=== PATIENT | female | born 1985 | race Caucasian/White ===

== ENCOUNTER → 2018-12-25 09:14 | Outpatient (CLI) | payer OTHER, SELFPAY ==
--- NOTE | 2018-12-25 | DI.US.S_ITS ---
PROCEDURE: US OB <= 14 WEEKS FETUS INDICATIONS: INITIAL SIZING AND DATING OUTSIDE/PRIOR DATING DATA: Last menstrual period (LMP): 11/07/18. LMP-based estimated date of delivery (RAN): 08/14/19. First dating scan (date and location): 12/25/18. Estimated date of delivery (RAN) from first dating scan: 08/21/19. TECHNIQUE: Real-time scanning was performed of the fetus and maternal pelvic organs, with image documentation. Endovaginal scanning was also performed to better visualize the fetus and maternal ovaries. COMPARISON: None. FINDINGS: Embryo: [place]-rump length measures 3 mm corresponding to 5 weeks 6 days. No definitive cardiac activity is able to be documented at this time. Measurement variability in dating: +/- 4 weeks by LMP, +/- 7 days by mean sac diameter (use before 6 weeks gestation if crown-rump length not able to be measured), +/- 5 days by crown-rump length (up to 8 weeks 6 days gestation), +/- 7 days by crown-rump length (up to 13 weeks 6 days gestation). Maternal organs: Ovaries within normal limits, with right corpus luteal cyst. Limited images through the kidneys demonstrate no hydronephrosis. IMPRESSION: Single intrauterine gestation present and no definitive cardiac activity is able to be documented at this time. If indicated, followup examination in 1 week could be performed to assess viability. Dictated by: José Luis MERINO Interpreted: Adriano Madera MD on 12/25/2018 at 12:01 Approved by: Michael Adler M.D. on 12/30/2018 at 9:56
== END ==
PROVIDERS: Family Provider Student in an Organized Health Care Education/Training Program; PCP Student in an Organized Health Care Education/Training Program; Visit Provider Nurse Practitioner Family
DX: Z34.91 Encounter for supervision of normal pregnancy, unspecified, first trimester (principal); Z3A.01 Less than 8 weeks gestation of pregnancy
CPT/HCPCS: 76801; 76817

== ENCOUNTER → 2019-01-05 14:35 | Outpatient (CLI) | payer OTHER, SELFPAY ==
--- NOTE | 2019-01-05 | DI.US.S_ITS ---
PROCEDURE: US OB <= 14 WEEKS FETUS INDICATIONS: CARDIAC ACTIVITY OUTSIDE/PRIOR DATING DATA: Last menstrual period (LMP): 11/07/18. LMP-based estimated date of delivery (RAN): 08/14/19. First dating scan (date and location): 12/25/18. Estimated date of delivery (RAN) from first dating scan: 08/21/19, plus or -5 days. TECHNIQUE: Real-time scanning was performed of the fetus and maternal pelvic organs, with image documentation. Endovaginal scanning was also performed to better visualize the fetus and maternal ovaries. COMPARISON: [facility], OB <= 14 WEEKS FETUS, 12/25/2018, 9:41. FINDINGS: Embryo: [place]-rump length measures 2.3 cm correlated with a 7 week 2 day gestational age. Age by first OB ultrasound earlier this month would be projected to be 7 weeks 3 days plus or -5 days. Therefore there has been appropriate interval growth. Heart rate is 144 beats per minute. Measurement variability in dating: +/- 4 weeks by LMP, +/- 7 days by mean sac diameter (use before 6 weeks gestation if crown-rump length not able to be measured), +/- 5 days by crown-rump length (up to 8 weeks 6 days gestation), +/- 7 days by crown-rump length (up to 13 weeks 6 days gestation). Maternal organs: Ovaries with corpus luteum cyst on the right and not visualized due to overlying bowel gas on the left. Limited images through the kidneys demonstrate no hydronephrosis. IMPRESSION: heart rate 144 beats per minute. Appropriate interval growth. Delivery date is projected to be centered on 08/21/19, plus or -5 days. Followup anatomic survey is recommended at approximately 20 weeks gestation. Dictated by: Michael Adler M.D. on 01/05/2019 at 16:13 Approved by: Michael Adler M.D. on 01/05/2019 at 16:16
== END ==
PROVIDERS: PCP Student in an Organized Health Care Education/Training Program; Visit Provider Nurse Practitioner Family
DX: Z34.91 Encounter for supervision of normal pregnancy, unspecified, first trimester (principal); Z3A.01 Less than 8 weeks gestation of pregnancy
CPT/HCPCS: 76801; 76830

== ENCOUNTER → 2019-04-20 11:53 | Outpatient (CLI) | payer OTHER, SELFPAY ==
--- NOTE | 2019-04-20 | DI.US.S_ITS ---
PROCEDURE: OB >= 14 WEEKS FETUS INDICATIONS: ANATOMY SCAN OUTSIDE/PRIOR DATING DATA: Last menstrual period (LMP): 11/07/18. LMP-based estimated date of delivery (RAN): 08/14/19. First dating scan (date and location): 12/25/18. Estimated date of delivery (RAN) from first dating scan: 08/21/19. TECHNIQUE: Real-time scanning was performed of the fetus, with image documentation and biometric measurements. COMPARISON: [facility], OB <= 14 WEEKS FETUS, 01/05/2019, 15:06. [facility], OB <= 14 WEEKS FETUS, 12/25/2018, 9:41. FINDINGS: General: A single living intrauterine gestation is present. Presentation: Cephalic Placenta: Placental position is posterior without previa. Amniotic fluid index: 19.0 cm heart rate: 140 beats per minute. Maternal cervical canal: 3.4 cm in length and noted to be closed. biometrics: Biparietal diameter: 5.6 cm, 23 weeks 0 days Head circumference: 20.2 cm, 22 weeks 3 days Abdominal circumference: 17.7 cm, 22 weeks 4 days Femur length: 4.1 cm, 23 weeks 1 day Estimated gestational age from initial scan: 22 weeks 3 days Composite gestational age from present scan: 22 weeks 6 days Estimated weight and percentile: 534 g (62nd percentile) Anatomic survey: Neuro: Ventricles are non-dilated at less than 10 mm. Cisterna magna is normal at 3-11 mm. Cerebellum is normal in size and morphology. Nuchal skin fold: Normal at less than 6 mm between 14-21 weeks gestational age. Face: Nose and lips, facial profile are normal. Spine: No evidence for spina bifida. Heart: The heart was not well-seen related to positioning of the fetus; however, appears to represent a 4 chambered heart. The right and left cardiac outflow tracts are within normal limits. Diaphragm: Diaphragm is intact. Stomach: Left-sided stomach is present. Kidneys: No hydronephrosis. Normal is less than 5 mm in 2nd trimester, less than 7 mm in 3rd trimester. Cord: 3-vessel cord has orthotopic insertion. Bladder: Normal in size. Extremities: All 4 extremities identified. IMPRESSION: 1. Single live intrauterine at 22 weeks 6 days (current sonographic RAN 08/18/19) is concordant with the dates from the prior ultrasound and has demonstrated appropriate interval growth. 2. No anatomic abnormalities are evident. However, the 4 chamber heart was suboptimally seen. Repeat evaluation in one to 2 weeks may be helpful. Dictated by: Asher Pearson M.D. on 04/20/2019 at 17:25 Approved by: Asher Pearson M.D. on 04/20/2019 at 17:29
== END ==
PROVIDERS: PCP Student in an Organized Health Care Education/Training Program; Visit Provider Student in an Organized Health Care Education/Training Program
DX: Z36.89 Encounter for other specified antenatal screening (principal); Z3A.22 22 weeks gestation of pregnancy
CPT/HCPCS: 76811

== ENCOUNTER → 2019-05-18 07:49 | Outpatient (CLI) | payer OTHER, SELFPAY ==
--- NOTE | 2019-05-18 | DI.US.S_ITS ---
PROCEDURE: US OB FOLLOW UP INDICATIONS: FOLLOWUP ON HEART OUTSIDE/PRIOR DATING DATA: Last menstrual period (LMP): 11/07/18. LMP-based estimated date of delivery (RAN): 08/14/19. First dating scan (date and location): 12/25/18. Estimated date of delivery (RAN) from first dating scan: 08/21/19. TECHNIQUE: Real-time scanning was performed of the fetus, with image documentation. COMPARISON: [facility], OB <= 14 WEEKS FETUS, 12/25/2018, 9:41. [facility], OB <= 14 WEEKS FETUS, 01/05/2019, 15:06. [facility] OB >= 14 WEEKS FETUS, 04/20/2019, 12:30. FINDINGS: A single live intrauterine gestation is present. Placenta: Placental position is posterior, without previa. Amniotic fluid index: 13.1 cm, normal range is 5-24 cm. heart rate: 139 beats per minute. Maternal cervical canal: 5.1 cm long. Normal lower limit is 2.5 cm. In this patient with this given history, scrutiny is given to the delay. Four-chamber heart is seen. The right ventricular outflow tract in the left ventricular outflow tract are well-seen. IMPRESSION: Normal heart, with normal appearing outflow tracts. Dictated by: Devon Gonzalez M.D. on 05/18/2019 at 10:54 Approved by: Devon Gonzalez M.D. on 05/18/2019 at 10:57
== END ==
PROVIDERS: PCP Student in an Organized Health Care Education/Training Program; Referring Provider Student in an Organized Health Care Education/Training Program; Visit Provider Student in an Organized Health Care Education/Training Program
DX: Z36.2 Encounter for other antenatal screening follow-up (principal); Z3A.27 27 weeks gestation of pregnancy
CPT/HCPCS: 76816

== ENCOUNTER → 2019-07-16 09:08 | Outpatient (ROUT) | payer OTHER, SELFPAY ==
[2019-07-17 13:21] LABS: Strep Grp B PCR NEG for Grp B Strep
== END ==
PROVIDERS: PCP Student in an Organized Health Care Education/Training Program; Visit Provider Student in an Organized Health Care Education/Training Program
DX: Z34.00 Encounter for supervision of normal first pregnancy, unspecified trimester (principal)
CPT/HCPCS: 87653

== ENCOUNTER 2019-08-20 22:18 | Inpatient (IN) | payer OTHER, SELFPAY ==
[2019-08-21] MEDS: fentaNYL 100 MCG/2 ML INJ 50 MCG IV ×4 (00:53→04:07)
[2019-08-21 00:57] LABS: Add Manual Diff / Slide Review NO; Basophils Absolute Auto 0 /uL (0-100); Basophils Percent Auto 0.3 % (0-2); Eosinophils Absolute Auto 0 /uL (0-450); Eosinophils Percent Auto 0.3 % (2-4); Hematocrit 34.4 % (36-46); Hemoglobin 11.6 g/dL (12.0-16.0); Lymphocytes Absolute Auto 1300 /uL (1100-4500); Lymphocytes Percent Auto 11.9 % (25-40); Mean Corpuscular HGB Conc 33.6 % (30-36); Mean Corpuscular Hemoglobin 28.9 PG (26-34); Mean Corpuscular Volume 85.9 fL (80-100); Monocytes Absolute Auto 600 /uL (0-900); Monocytes Percent Auto 5.7 % (3-14); Neutrophils Absolute Auto 8600 /uL (1500-7000); Neutrophils Percent Auto 81.8 % (50-75); Platelet Count 162 X10^3/uL (150-400); Red Blood Cell Count 4.01 X10^6/uL (4.0-5.2); Red Cell Distribution Width 15.1 % (11.6-14.8); White Blood Cell Count 10.5 X10^3/uL (4.5-11.0)
--- NOTE | 2019-08-21 02:06 | P.HPOB_ITS ---
OB HPI Date/Time Date of admission: 08/21/19 Date Patient Seen: 08/21/19 Time Patient Seen: 02:07 History of Present Condition Chief complaint: observation of labor : 1 Para: 0 Estimated Date of Delivery: 08/20/19 Estimated Gestational Age (weeks): 40wod Narrative: Pauly Villanueva is a 34 year old female at 40w0d with RAN of 08/21/19 per first trimester ultrasound. She presents with contractions for the last 12 hours, bag of water intact. Her course has been uncomplicated. She is Rh negative and received RhoGAM at 27w6d. LABS/IMAGING: ABO A negative, antibody negative on 12/25/18. Rubella immune. Hepatitis-B surface antigen negative. HIV, HSV 1 and 2 negative. GC/chlamydia negative. Treponemal antibody negative. Varicella titer positive. Pap smear plus HPV DNA negative on 01/07/2019. Urine culture negative on 01/07/2019. Hemoglobin/hematocrit 12.2/36.2 on 12/25/2018. Repeat hemoglobin/hematocrit 10.6/31.9 on 07/16/2019. TSH within normal limits. 1 hour Glucola negative on of 06/03/2019. GBS negative on 07/16/2019. NIPT negative, 02/26/2019 Dating US: 12/25/2018, RAN 08/21/2019 Anatomy Scan: 04/20/2019, 22w6d, scan normal except heart suboptimally seen, repeat scan on 05/18/2019 within normal limits. OBSTETRIC HISTORY: GYNECOLOGICAL HISTORY: History of abnormal Pap smear with normal colposcopy, 2009 PAST MEDICAL HISTORY: None PAST SURGICAL HISTORY: None FAMILY HISTORY: noncontributory SOCIAL HISTORY: to Eric, father of the baby, involved and supportive. 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 History of Present care: good care Dating criteria: based on 1st trimester US only Ultrasounds: normal 1st trimester US and normal mid trimester US Obstetrical complications: none Evaluation Evaluation Laboratory results: Laboratory Tests 08/21/19 08/21/19 00:45 00:45 WBC 10.5 RBC 4.01 Hgb 11.6 L Hct 34.4 L MCV 85.9 MCH 28.9 MCHC 33.6 RDW 15.1 H Plt Count 162 Neut % (Auto) 81.8 H Lymph % (Auto) 11.9 L [place] % (Auto) 5.7 Eos % (Auto) 0.3 L Baso % (Auto) 0.3 Neut # (Auto) 8600 H Lymph # (Auto) 1300 [place] # (Auto) 600 Eos # (Auto) 0 Baso # (Auto) 0 Blood Type A Negative Antibody Screen Negative [facility] Social History Smoking Status: Never smoker Meds Home Medications and Allergies Allergies Allergy/AdvReac Type Severity Reaction Status Date / Time No Known Drug Allergies Allergy Verified 08/21/19 00:54 Review of Systems Review of Systems ROS: Yes All systems reviewed with the patient and are negative except as otherwise documented Exam Vital Signs (past 8 hours): General: NAD Skin: Color unremarkable, no rash nor lesions HEENT: Neck supple with midline trachea Lungs: CTAB Heart: Normal rate, and regular rhythm, S1, S2 normal, no murmur, click, rub or gallop Abdomen: Gravid, soft, non-tender Extremities: No cord, no edema, no cyanosis Pelvis: Normal female external genitalia Presentation: vertex Cervix: 4/100/-2/mid/soft Monitoring: Variability: Moderate Baseline: 120s Accelerations: Present Decelerations: earlys Contractions: Every 3 minutes Strength: Moderate Objective Labs Result Diagrams: 08/21/19 00:45 Labs: Laboratory Results - last 24 hr 08/21/19 08/21/19 00:45 00:45 WBC 10.5 RBC 4.01 Hgb 11.6 L Hct 34.4 L MCV 85.9 MCH 28.9 MCHC 33.6 RDW 15.1 H Plt Count 162 Neut % (Auto) 81.8 H Lymph % (Auto) 11.9 L [place] % (Auto) 5.7 Eos % (Auto) 0.3 L Baso % (Auto) 0.3 Neut # (Auto) 8600 H Lymph # (Auto) 1300 [place] # (Auto) 600 Eos # (Auto) 0 Baso # (Auto) 0 Blood Type A Negative Antibody Screen Negative Assessment and Plan Assessment and Plan Assessment and Plan narrative: 1. IUP at 40wod 2. 3. Active Labor Plan: Admit to Labor and delivery with routine orders. Anticipate vaginal delivery. Questions answered, appropriate consents will be signed.
[2019-08-21 03:20] LABS: COVID19 -Nasal RAPID Negative (Negative)
--- NOTE | 2019-08-21 05:43 | PM.OBPNLAB ---
Date/Time Date Patient Seen: 08/21/19 Time Patient Seen: 05:43 Pain Control Pain control: tolerating well and narcotic analgesia Comments: On birthing ball, well supported by . Breathing well during and after contractions. IV fentanyl helping with the pain. Pelvic Exam Dilation (cm): 9 Effacement (%): 100 station: +1 Amniotic membrane status: Ruptured (clear) Contractions Contractions on admission: regular Monitor mode: External Contraction frequency (min): 3 Contraction duration (min): 1 Contraction pattern: Regular Contraction intensity: Moderate Status status: Category ll Heart Rate Baseline: 120 Monitor Accelerations: Present Monitor Decelerations: Early Monitor Variability: Moderate Assessment and Plan Assessment: active labor Plan: continuous present management Comments: Anticipate .
[2019-08-21 07:50] VITALS: TEMP 37.2
[2019-08-21] MEDS: KETOROLAC 30 MG/ML VIAL IV (07:50)
[2019-08-21] MEDS: LACTATED RINGERS 1,000 ML 100 ML IV (07:57)
[2019-08-21] MEDS: OXYTOCIN 10 UNIT/ML VIAL 20 UNIT (07:59)
--- NOTE | 2019-08-21 08:48 | PM.OBPRVD ---
Labor & Delivery Delivery date: 08/21/19 Intrapartal events: None Cervical ripening method: none Induction method: none Delivery monitor: external FHT Route of delivery: L&D Laceration Description: Periurethral - 3rd Degree Delivery repair: vicryl (3-0) Estimated blood loss (mL): 400 Anesthesia type: IV fentanyl Complications: None Narrative: On 08/21/19, this 34 year old , GBS negative female under IV fentanyl anesthesia delivered a viable female with unknown weight and scores of 7/9. Delivery was via normal spontaneous vaginal delivery at 7:38 am. There was no nuchal cord. Cord clamped and cut and infant handed to mother. Cord blood sent for analysis as mother is Rh negative. Intact placenta with three-vessel cord was delivered spontaneously at 8:25 am. 10 mg of IM Pitocin administered. Uterus, cervix, vagina, and rectum explored and found to have a third-degree perineal tear repaired with 3-0 Vicryl in the usual fashion. Bilateral medial labia majora excoriations were left unrepaired as they were not bleeding. Estimated blood loss 400 cc. Patient remained in the delivery room in stable condition. Infant remained in the delivery room stable condition. Plan for aftercare: Routine care.
[2019-08-21] MEDS: ACETAMINOPHEN 325 MG TABLET 650 MG PO (11:46)
[2019-08-22 04:59] LABS: Add Manual Diff / Slide Review NO; Basophils Absolute Auto 100 /uL (0-100); Basophils Percent Auto 0.6 % (0-2); Eosinophils Absolute Auto 100 /uL (0-450); Eosinophils Percent Auto 0.9 % (2-4); Hemoglobin 8.6 g/dL (12.0-16.0); Lymphocytes Absolute Auto 1600 /uL (1100-4500); Lymphocytes Percent Auto 13.1 % (25-40); Mean Corpuscular HGB Conc 33.2 % (30-36); Mean Corpuscular Hemoglobin 28.8 PG (26-34); Mean Corpuscular Volume 86.6 fL (80-100); Monocytes Absolute Auto 800 /uL (0-900); Monocytes Percent Auto 6.1 % (3-14); Neutrophils Absolute Auto 9900 /uL (1500-7000); Neutrophils Percent Auto 79.3 % (50-75); Platelet Count 141 X10^3/uL (150-400); Red Cell Distribution Width 15.3 % (11.6-14.8); White Blood Cell Count 12.4 X10^3/uL (4.5-11.0)
[2019-08-22] MEDS: DOCUSATE 250 MG CAPSULE PO (08:22)
--- NOTE | 2019-08-22 11:06 | PM.OBDS.1 ---
Discharge Providers Provider Date of admission: 08/20/19 22:18 Discharge Date: 08/22/19 Primary care physician: Audra Dillard MD Consults: 08/22/19 08:45 Consult to Audio Visual Aids Director Routine Comment: Discharge provider: Audra Dillard MD Summary Hospital Course Date Patient Seen: 08/22/19 Time Patient Seen: 11:07 Procedures: 1. , 08/21/19, Dr. Dillard, no complications Hospital Course: Unremarkable. Mother is well. Tolerating full diet with no nausea vomiting. Ambulating well. Lochia less than menses. On day of discharge, she is afebrile with stable vital signs throughout. She received RhoGAM prior to discharge. Discharge diagnoses: 1. 34 yo 2. Status post at 40w0d 3. Rh negative 4. Anemia, normocytic/normochromic Peripartum Data Infant Delivery Method: Natural Vaginal Laceration description: Perineal - 3rd Degree complications: none Status at Discharge Cognitive/behavioral status at discharge: oriented Functional status at discharge: independent ambulation Overall status at discharge: patient is progressing back to baseline Time Spent with Patient Time attestation: Total time spent providing and/or coordinating discharge services: 35 Objective Labs Result Diagrams: 08/22/19 04:35 Labs: Laboratory Results - last 24 hr 08/22/19 04:35 WBC 12.4 H RBC 3.00 L Hgb 8.6 L Hct 26.0 L MCV 86.6 MCH 28.8 MCHC 33.2 RDW 15.3 H Plt Count 141 L Neut % (Auto) 79.3 H Lymph % (Auto) 13.1 L [place] % (Auto) 6.1 Eos % (Auto) 0.9 L Baso % (Auto) 0.6 Neut # (Auto) 9900 H Lymph # (Auto) 1600 [place] # (Auto) 800 Eos # (Auto) 100 Baso # (Auto) 100 Exam Narrative Exam Narrative: General: NAD Skin: Color unremarkable, no rash nor lesions HEENT: Neck supple with midline trachea Lungs: CTAB Heart: Normal rate, and regular rhythm, S1, S2 normal, no murmur, click, rub or gallop Abdomen: FF at U-1, soft, non-tender, +BS Extremities: No edema, no cyanosis Discharge Plan Discharge Plan Patient Disposition: Home Discharge orders & Medications Prescriptions: New ibuprofen 600 mg Tablet 600 mg PO Q6HR PRN (Reason: Pain, Mild (1-3)) Qty: 90 RF: 1 Prenatabs Rx 29 mg iron- 1 mg Tablet 1 tab PO DAILY Qty: 90 RF: 3 Follow up/Referrals: Audra Dillard MD [Primary Care Provider] - Diet/Activity/Treatments Diet: Diet as Tolerated Diet comment: As tolerated Activity: 1. Routine care 2. No driving for 2 weeks. 3. Call or return for uncontrolled pain, fever, intractable nausea or vomiting, trouble with urination, heavy vaginal bleeding greater than 1 pad per hour, suicidal/homicidal thoughts, signs or symptoms of infection, or any other concerns. Skin/Wound/Dressing Care Report to your healthcare provider any signs of infection, such as:: chills, fever, increased pain and unusual drainage Discharge Data Primary Care Provider: Audra Dillard
[2019-08-22] MEDS: RHO(D) IMMUNE GLOBULIN 1,500 UNIT SYRINGE 1500 UNIT IM (12:45)
== END 2019-08-22 13:01 | disposition home or self-care (01) | DRG 768 ==
PROVIDERS: Admitting Provider Student in an Organized Health Care Education/Training Program; PCP Student in an Organized Health Care Education/Training Program; Referring Provider Student in an Organized Health Care Education/Training Program; Visit Provider Student in an Organized Health Care Education/Training Program
DX: O70.20 Third degree perineal laceration during delivery, unspecified (principal); Z37.0 Single live birth; Z3A.40 40 weeks gestation of pregnancy; O99.02 Anemia complicating childbirth; D64.89 Other specified anemias
CPT/HCPCS: 36415; 59050; 85025; 85461; 86850; 86900; 86901; 87635; G0379; J1885; J2590; J2790; J3010

== ENCOUNTER → 2024-08-05 16:41 | Outpatient (CLI) | payer OTHER, SELFPAY ==
--- NOTE | 2024-08-05 16:44 | DI.MG.S_ITS ---
MM screening mammo BI: 08/05/2024. BI-RADS: 1 CLINICAL: 39-year old female for bilateral screening mammogram. Tyrer-Cuzick lifetime risk of 13.3%. No personal or first-degree family history of breast cancer. PRIOR EXAMS: None. This is a baseline mammogram. MAMMOGRAPHY TECHNIQUE: 2D and 3D (tomosynthesis) digital mammographic views obtained, with additional images as needed for full coverage. Current study was also evaluated with a Computer Aided Detection (CAD) system. DENSITY C. The breasts are heterogeneously dense, which may obscure small masses. MAMMOGRAPHY FINDINGS Bilateral: No suspicious mass, asymmetry, microcalcification, or other abnormality seen. IMPRESSION: * No evidence of malignancy. RECOMMENDATIONS Bilateral * Annual screening mammography. OVERALL ASSESSMENT CATEGORY BI-RADS-1: Negative. [employer] recommends annual screening mammography beginning at age 40 for women with average risk of breast cancer. ELECTRONICALLY SIGNED: Jailyn Candelaria M.D. on 08/10/2024 at 12:56:44 AM PT Interpreting Station ID: [id number]
== END ==
PROVIDERS: PCP Student in an Organized Health Care Education/Training Program; Referring Provider Registered Nurse; Visit Provider Registered Nurse
DX: Z12.31 Encounter for screening mammogram for malignant neoplasm of breast (principal); R92.333 Mammographic heterogeneous density, bilateral breasts
CPT/HCPCS: 77063; 77067